=== PATIENT | male | born 1970 | race Caucasian/White ===

== ENCOUNTER 2017-01-17 12:59 | Day surgery (SDC) | payer BC ==
[2017-01-14 09:35] LABS: BASOPHILS 0.1 %; BASOPHILS ABSOLUTE 0.01 10/3/uL (0.0-0.16); EOSINOPHILS 1.6 %; EOSINOPHILS ABSOLUTE 0.13 10/3/uL (0.0-0.53); HEMATOCRIT 41.4 % (40.0-51.0); HEMOGLOBIN 14.7 g/dL (13.6-17.8); IMMATURE GRANULOCYTES 0.2 %; IMMATURE GRANULOCYTES ABSOLUTE 0.02 10/3/uL (0.0-0.11); LYMPHOCYTES 34.5 %; LYMPHOCYTES ABSOLUTE 2.85 10/3/uL (0.67-4.30); MEAN CORPUS HGB CONC 35.5 g/dL (32.0-36.0); MEAN CORPUSCULAR HEMOGLOB 31.3 pg (26.0-34.0); MEAN CORPUSCULAR VOLUME 88.3 fL (80-100); MEAN PLATELET VOLUME 9.6 fL (9.2-13.0); MONOCYTES 8.6 %; MONOCYTES ABSOLUTE 0.71 10/3/uL (0.21-1.20); NEUTROPHILS ABSOLUTE 4.53 10/3/uL (2.02-8.40); PLATELET COUNT 309 10/3/uL (150-400); RBC DISTRIBUTION WIDTH 13.1 % (12.0-16.0); RED CELL COUNT 4.69 10/6/uL (4.7-6.1); WHITE BLOOD CELLS 8.3 10/3/uL (4.5-10.5)
[2017-01-14 09:36] LABS: MANUAL DIFF NO %
[2017-01-14 09:48] LABS: BUN (BLOOD UREA NITROGEN) 16 MG/DL (6-23); CALCIUM, SERUM 9.8 MG/DL (8.5-10.4); CHLORIDE, SERUM 102 MMOL/L (96-112); CO2 (CARBON DIOXIDE) 30 MMOL/L (24-34); CREATININE 0.99 MG/DL (0.70-1.30); GFR AFRICAN AMERICAN 104 ML/MIN (>=60); GFR NON AFRICAN AMERICAN 90 ML/MIN (>=60); GLUCOSE, SERUM 149 MG/DL (60-99); POTASSIUM, SERUM 4.4 MMOL/L (3.5-5.3); SODIUM, SERUM 139 MMOL/L (135-148)
[2017-01-14 09:54] LABS: ASCORBIC ACID (UR NOT ORDER) NEG (NEG); BILIRUBIN, URINE NEGATIVE (NEG); KETONE, URINE TRACE MG/DL (NEG); LEUKOCYTE ESTERASE(NOT OR NEG (NEG); WBC (NOT ORDERED) (RFLEX) 5 (0-5)
--- NOTE | ~2017-01-17 | OP ---
Record Of Operation [facility] [address] [place]. [address] NAME: RAMONE RIVERA : 66 STATUS : REG [facility]#: [id number] AGE: 46 ADM/REG DATE : 01/17/17 MR#: [id number] REPORT SERV DATE: 01/17/17 DICTATED BY: HOMAR RYAN DATE: 01/17/17 REPORT STATUS : Draft TRANSCRIBED BY: MODL DATE: 01/17/17 DATE OF PROCEDURE: 01/17/2017 PREOPERATIVE DIAGNOSIS: Large left ureteral calculus. POSTOPERATIVE DIAGNOSIS: Large left ureteral calculus. PROCEDURE PERFORMED: ESWL. SURGEON: Homar Ryan M.D. ANESTHESIA: MAC. HISTORY: This is a 46-year-old white male, recently presenting to the office with hematuria. Workup has revealed approximately a 1 cm partially obstructing left ureteral stone. After discussion of management options, we have elected to proceed with in situ ESWL. Risks of infection, bleeding, failure, need for further surgery have been discussed. PROCEDURE IN DETAIL: The patient was taken to the operating room and was placed in a supine position on the lithotripsy table. He underwent MAC. His stone was easily imaged fluoroscopically in the L4-5 area of the right ureter. He received 4000 shocks up to a power level of 9, it was difficult to determine the degree of fragmentation. He tolerated the procedure very well and there were no complications. At the conclusion of the case. He was taken to recovery in stable condition. FARHAD/DEWEY Homar Ryan M.D. / [id number] CC: Stanton Baer D.O.
[~2017-01-17 12:59] MED LIST: CENTRUM PO; ENDOCET1 TA1 PO; FLEX PO; GLUCOPHAGE1000 MG PO; INVOKANA100 MG PO; JANUVIA100 MG PO; LIPITOR10 PO; METHOC500B PO; NEUR100 PO; OXYCOD PO; PRIN20 PO; PROTONIX PO
[2017-02-06] MEDS ORDERED: NORCO1 TA1 PO (15:18)
== END 2017-01-17 19:31 | disposition home or self-care (01) ==
LOC: SDC 12:59
PROVIDERS: Urology
PROC: 0TF7XZZ Fragmentation in Left Ureter, External Approach (ICD-10-PCS; principal; 2017-01-17 15:00)
DX: N20.1 Calculus of ureter (principal); I10 Essential (primary) hypertension; E78.00 Pure hypercholesterolemia, unspecified; E11.9 Type 2 diabetes mellitus without complications; K21.9 Gastro-esophageal reflux disease without esophagitis; Z88.0 Allergy status to penicillin; Z79.899 Other long term (current) drug therapy; Z98.52 Vasectomy status; Z98.890 Other specified postprocedural states
CPT/HCPCS: 50590; 74000; 80048; 81001; 82962; 84550; 85025; 93005; J2250; J2405; J3010

== ENCOUNTER 2017-02-13 07:27 | Day surgery (SDC) | payer BC ==
--- NOTE | ~2017-02-13 | OP ---
Record Of Operation [facility] [address] [place]. [address] NAME: RAMONE RIVERA : 66 STATUS : [facility]#: [id number] AGE: 47 ADM/REG DATE : 02/13/17 MR#: [id number] REPORT SERV DATE: 02/13/17 DICTATED BY: HOMAR RYAN DATE: 02/13/17 REPORT STATUS : Draft TRANSCRIBED BY: MODL DATE: 02/13/17 DATE OF PROCEDURE: 02/13/2017 PREOPERATIVE DIAGNOSIS: Left ureteral stones. POSTOPERATIVE DIAGNOSIS: Left ureteral stones. PROCEDURE PERFORMED: Cystoscopy, left retrograde pyelogram, left rigid and flexible ureterorenoscopy with laser fragmentation, basket retrieval of multiple left ureteral stones, and basket retrieval of multiple left renal stones and stent placement. SURGEON: Homar Ryan M.D. ANESTHESIA: General. ESTIMATED BLOOD LOSS: 5 mL. INDICATIONS: This is a 47-year-old, white male with a history of a large impacted left mid ureteral stone. He has undergone ESWL with partial fragmentation. We have elected to proceed with endoscopic management of the residual ureteral stones. Risks of infection, bleeding, failure, need for prolonged stenting, etc. were reviewed. PROCEDURE IN DETAIL: The patient was taken to the operating room and underwent a general anesthetic. He was placed in the lithotomy position on the table, and his external genitalia were sterilely prepped and draped. The 22-Lebanese cystoscope sheath with 30-degree lens was inserted under direct vision per urethra with the aid of the video monitor. The anterior urethra was normal. The prostate was relatively short with mild lateral lobe occlusion and a mildly elevated bladder neck. The bladder was inspected and the mucosa around the left orifice was irritated. The right orifice looked normal. There were no stones in the bladder. There were no mass lesions within the bladder. A left retrograde pyelogram was obtained which appeared to show a filling defect in the left distal ureter and perhaps mild dilatation of the left ureter and collecting system. We placed an 0.038 guidewire up into the collecting system of the kidney under fluoroscopic guidance and used an 11/13-Lebanese ureteral access sheath with obturator to dilate the distal ureter. Following this, the rigid ureteroscope was inserted per urethra and advanced into the bladder again with the aid of the video monitor and the scope was easily advanced up into the left orifice and immediately I encountered a group of stones, the largest of which probably measured 7 or 8 mm in size and there were multiple smaller stones. We used a 200 micron laser fiber to break the largest stone into several pieces. We then used a Nitinol basket to remove all of the stones in the distal ureter. Following successful fragmentation and extraction of the distal stones, the ureteroscope was withdrawn and the ureteral access sheath with obturator was advanced back over the guidewire up into the mid ureter. A second guidewire was placed through the access sheath and the sheath and obturator were then removed and advanced over one of the two guidewires leaving the other in place as a safety wire. The flexible ureteroscope was then advanced through the access sheath up into the mid ureter and on up into the kidney. No other stones were encountered in the ureter. The Record Of [facility] [address] [facility] [place]. [address] NAME: RAMONE RIVERA : 66 STATUS : [facility]#: [id number] AGE: 47 ADM/REG DATE : 02/13/17 MR#: [id number] REPORT SERV DATE: 02/13/17 DICTATED BY: HOMAR RYAN DATE: 02/13/17 REPORT STATUS : Draft TRANSCRIBED BY: DEWEY DATE: 02/13/17 renal collecting system was moderately dilated and was thoroughly inspected with excellent visibility. There were 2 stone fragments in the lower pole, each about 3 mm in size and each of these was grasped using an N-tyler basket and removed. The collecting system was reinspected with no other stones noted. The ureteroscope was then withdrawn down the ureter under direct vision with no significant abnormalities and no other stones encountered. The cystoscope was replaced over the guidewire and a 6-Lebanese x 28 cm Contour stent was advanced such that the proximal end of the stent was observed to coil in the pelvis of the kidney under fluoroscopic guidance and the distal end of the stent was visually observed to coil in the bladder following removal of the guidewire. The stent was left connected to a string dangle which was taped to the patient's penis. The bladder was drained. All endoscopic apparatus was removed, and the patient was taken to recovery in stable condition. FARHAD/DEWEY Homar Ryan M.D. / [id number] CC: Stanton Baer D.O.
[~2017-02-13 07:27] MED LIST changes: +NORCO1 TA1 PO
[2017-02-18 23:37] LABS: STONE COMPOSITION TWO DNR (())
== END 2017-02-13 13:28 | disposition home or self-care (01) ==
LOC: SDC 07:27
PROVIDERS: Urology
PROC: 0TC78ZZ Extirpation of Matter from Left Ureter, Via Natural or Artificial Opening Endoscopic (ICD-10-PCS; 2017-02-13)
PROC: 0TC18ZZ Extirpation of Matter from Left Kidney, Via Natural or Artificial Opening Endoscopic (ICD-10-PCS; 2017-02-13)
PROC: BT1FYZZ Fluoroscopy of Left Kidney, Ureter and Bladder using Other Contrast (ICD-10-PCS; 2017-02-13)
PROC: 0T778DZ Dilation of Left Ureter with Intraluminal Device, Via Natural or Artificial Opening Endoscopic (ICD-10-PCS; principal; 2017-02-13 08:45)
DX: N20.2 Calculus of kidney with calculus of ureter (principal); I10 Essential (primary) hypertension; E78.00 Pure hypercholesterolemia, unspecified; K21.9 Gastro-esophageal reflux disease without esophagitis; E11.9 Type 2 diabetes mellitus without complications; Z88.0 Allergy status to penicillin; Z79.891 Long term (current) use of opiate analgesic; Z79.899 Other long term (current) drug therapy; Z98.52 Vasectomy status; Z98.890 Other specified postprocedural states
CPT/HCPCS: 74420; 80048; 82365; 82962; 85025; 85610; 85730; 93005; A9270-GY; C1758; C2617; J2250; J2405; J2710; J3010; Q9967